=== PATIENT | female | born 1950 | race Hispanic/Latino ===

== ENCOUNTER → 2022-11-01 | Outpatient (CLI) | payer OTHER ==
[~2022-11-01] MED LIST: GADOTERATE MEGLUMINE 10 MMOL/20 ML VIAL IV ONE
== END | disposition home or self-care (01) ==
LOC: RAH 10-28 13:37
PROVIDERS: ATTEND Internal Medicine
DX: R41.3 Other amnesia (principal)
CPT/HCPCS: 70553; A9575

== ENCOUNTER → 2024-07-20 | Outpatient (CLI) | payer OTHER, MEDICARE ==
[~2024-07-20] MED LIST changes: +ALBU18HF7 IH; +ATOR20TA65 PO; +AZIT250T PO; +CETI10CA5 PO; -GADOTERATE MEGLUMINE 10 MMOL/20 ML VIAL IV ONE; +LINA5TAB PO; +LOSA50TA64 PO; +MEMA5TAB16 PO; +METF-446 PO; +OMEP20TA20 PO; +PARO40TA72 PO
[2024-07-20] MEDS: REGADENOSON 0.4 MG/5 ML PF SYG IVP ONE (15:11)
--- NOTE | 2024-07-21 12:14 | HMCSR ---
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 Informerd consent was witnessed Jalen Nesbitt RN First, low dose rest was performed then high dose stress. RESTING DATA: The resting ekg shows: NSR Rest SPECT myocardial perfusion imaging was performed in supine position 89 minutes following the int ravenous injection of 11 mCi of Tc-99 Sestamibi. Time of rest injection: 09:40: Date: 07/20/2024 Time of rest imagin:09: Date: 07/20/2024 PHARMACOLOGIC STRESS: Pharmacologic stress test was performed by injecting regadenoson 0.4 mg IV push followed by the intra venous injection of 30 mCi of Tc-99 Sestamibi. Time of stress injection: 11:35: Date: 07/20/2024 Time of stress imagin:12: Date: 07/20/2024 Heart Rate at time of stress injection: 70 bpm. Gated Stress SPECT was performed 97 minutes after stress injection. The images were gated to evaluate regional wall motion and calculate left ventricular ejection fracti on. STRESS DETAILS Reason for Termination: Infusion complete Stress Symptoms: Dyspnea Max HR Achieved: 99 bpm % of APMHR Achieved: 69 Max Blood Pressure: 172/98 mmHg Stress ECG: NSR Conclusion No ischemia No infarct LV ejection fraction 77% Normal LV wall motion Normal LV size at rest and stress No increased lung uptake
== END | disposition home or self-care (01) ==
LOC: SHCH 09:14
PROVIDERS: ATTEND Internal Medicine Cardiovascular Disease
DX: I20.9 Angina pectoris, unspecified (principal)
CPT/HCPCS: 78452; 93017; J2785; A9500 ×2